=== PATIENT | female | born 1950 | race Caucasian/White ===

== ENCOUNTER 2020-09-20 10:40 | Emergency (ER) | payer MEDICARE, MEDICAID, SELFPAY ==
[2020-09-20 10:48] VITALS: BP 121/84; BP 140/57; PULSE 62; PULSE 66; RESP 14; TEMP 36.9; O2SAT 98; BMI 45.4
--- NOTE | 2020-09-20 11:25 | XR_ITS ---
EXAMINATION: XR KNEE, RIGHT CLINICAL INFORMATION: Chronic pain. COMPARISON: None TECHNIQUE: 2 views of the right knee. FINDINGS: There is a total right knee prosthesis with prosthetic components in satisfactory alignment. No visible acute fracture, dislocation or lytic process seen. The soft tissues are normal. XR/XR knee RT 3V IMPRESSION: Total right knee arthroplasty with prosthetic components in satisfactory alignment.
--- NOTE | 2020-09-20 11:33 | ED_ITS ---
HPI - Extremity Problem General Chief complaint: Extremity Problem Stated complaint: RIGHT KNEE PAIN X'S 2 DAYS, NO INJURY Time Seen by Provider: 09/20/20 11:21 Mode of arrival: EMS Limitations: no limitations History of Present Illness HPI Narrative: patient comes to the emergency room complaining of chronic right-sided knee pain. Patient states she has had pain for several months. Patient was recently discharged about a week ago from [facility], states that she did very well, but soon after she got home, she started having right knee pain again. Patient is requesting to be sent there again. Patient states since she got out of rehab, she has had no new injuries, denies falls. Patient is able to bear weight but is very painful. Related Data Home Medications Medication Instructions Recorded Confirmed amlodipine 1 tab PO DAILY 09/20/20 09/20/20 aripiprazole 1 tab PO QAM 09/20/20 09/20/20 atenolol 1 tab PO DAILY 09/20/20 09/20/20 benztropine 1 tab PO BEDTIME 09/20/20 09/20/20 benztropine 1 tab PO BID 09/20/20 09/20/20 divalproex PO 09/20/20 famotidine 1 tab PO BID 09/20/20 09/20/20 gabapentin 1 cap PO BEDTIME 09/20/20 09/20/20 naproxen 1 tab PO BID 09/20/20 09/20/20 pioglitazone 1 tab PO DAILY 09/20/20 09/20/20 simvastatin 1 tab PO BEDTIME 09/20/20 09/20/20 trazodone 1 tab PO 09/20/20 venlafaxine 1 cap PO QAM 09/20/20 09/20/20 Allergies Allergy/AdvReac Type Severity Reaction Status Date / Time codeine [Codeine] Allergy Unknown UNKNOWN Verified 09/20/20 13:44 hydromorphone [From DILAUDID] Allergy Unknown UNKNOWN Verified 09/20/20 13:44 Review of Systems Review of Systems: Constitutional : No Weight loss, No Fever, No Chills, No Night Sweats, No Fatigue, No Malaise ENT/Mouth : No Hearing loss, No Ear Pain, No Nasal Congestion, No Sinus Pain, No Hoarseness, No sore throat, No Rhinorrhea, No Swallowing Difficulty Eyes: No Eye Pain, No Swelling, No Redness, No Foreign Body, No Discharge, No Vision Changes Cardiovascular : No Chest Pain, No SOB, No Dyspnea on Exertion, No Orthopnea, No Edema, No Palpitations Respiratory : No Cough, No Sputum, No Wheezing, No Smoke Exposure, No Dyspnea Gastrointestinal : No Nausea, No Vomiting, No Diarrhea, No Constipation, No abdominal Pain, No Hematochezia, No Melena Genitourinary : no irregular bleeding, No Dysuria, No Urinary Frequency, No Hematuria, No Urinary Incontinence, No Urgency, No Flank Pain, No Urinary Flow Changes, No Hesitancy Musculoskeletal : Chronic right knee joint pain, No Myalgias, No Joint Swelling Skin : No Skin Lesions, No rash Neuro : No Weakness, No Numbness, No Paresthesias, No Loss of Consciousness, No Dizziness, No Headache Psych : No Anxiety/Panic, No Depression, No SI/HI/AH/VH, No Social Issues, Heme/Lymph: No Bruising, No Bleeding,No Lymphadenopathy Endocrine : No Polyuria, No Polydipsia, No Temperature Intolerance [facility] Past Medical History Medical History (Updated 09/20/20 @ 16:10 by Tonja Burciaga MD) Chronic kidney disease Hypernatremia Multiple falls Surgical History H/O: hysterectomy History of total knee replacement Family History Family History (Updated 09/20/20 @ 11:36 by Tonja Burciaga MD) Other Coronary artery disease Diabetes Social History Social History Alcohol intake: never Smoking Status: Former smoker Use of substances other than those prescribed or required for medical reasons: No Advance Directives: Yes Advance Directives Information Provided: Yes Advance Directives on File: No Physical Exam Vital Signs: Vital Signs: Vital Signs Temp Pulse Resp BP Pulse Ox 09/20/20 16:26 99.4 F 68 24 H 172/70 H 09/20/20 14:11 96.2 F L 65 18 137/76 96 09/20/20 12:45 99.4 F 64 20 140/42 H 94 09/20/20 12:01 62 140/57 H 98 09/20/20 10:48 98.4 F 62 14 140/57 H 98 Body Mass Index 45.4 Appearance: Alert. Oriented X3. No acute distress. Eyes: Pupils equal, round and reactive to light. ENT: Pharynx normal. Neck: Normal inspection. Neck supple. No lymph nodes noted. No crepitus CVS: Normal heart rate and rhythm. Pulses normal. Normal S1 and S2 Respiratory: No respiratory distress. Breath sounds normal. No Wheezing. No rales Abdomen: Soft and nontender. No rigidity. No distention. good BS x4 Skin: Skin warm and dry. Normal skin color. Normal skin turgor. Extremities: No lower extremity edema. patient is able to flex and extend both knees, complaining of pain flexing the right knee. Patient is able to ambulate with 1 assist Neuro: Oriented X 3. No motor deficit. No sensory deficit. Moving all extermities. No slurred speech. Course Course Course Narrative: CBC chemistry and x-ray pending, I discussed the patient with our binder caser, patient will likely benefit from returning to rehab MDM - Extremity (Nontraumatic) MDM Narrative Medical decision making narrative: patient was admitted to [facility] by Dr. aranda. patient is going to short-term rehab rehab, expected to be less than 30 days Lab Data Result diagrams: 09/20/20 11:38 09/20/20 11:38 Labs: Lab Results 09/20/20 09/20/20 09/20/20 Range/Units 11:38 11:38 14:11 WBC 5.9 (4.8-10.8) X10*3/uL RBC 3.73 L (4.20-5.50) X10*6/uL Hgb 11.7 L (12.0-16.0) g/dl Hct 37.9 (37-47) % MCV 101.6 H (80-98) fL MCH 31.4 (27.0-33.0) pg MCHC 30.9 L (31.0-35.0) g/dl RDW 13.0 (11.0-16.0) % Plt Count 198 (160-400) X10*3/uL MPV 10.9 (9.4-12.3) fL Immature Gran % (Auto) 0.2 (0.0-0.4) % Neut % (Auto) 72.8 (45-73) % Lymph % (Auto) 15.5 L (20-40) % [place] % (Auto) 7.6 (2-11) % Eos % (Auto) 3.2 (0-4) % Baso % (Auto) 0.7 (0-2) % Lymph # (Auto) 0.9 L (1.2-4.9) X10*3/uL [place] # (Auto) 0.5 (0.1-1.2) X10*3/uL Eos # (Auto) 0.2 (0.0-0.4) X10*3/uL Baso # (Auto) 0.0 (0.0-0.2) X10*3/uL Abs Immat Gran (auto) 0.01 (0.00-0.03) X10*3/uL Absolute Neuts (auto) 4.3 (2.0-8.3) X10*3/uL Absolute Nucleated RBC 0.000 (0.0-0.012) X10*3/uL Nucleated RBC % (auto) 0.0 (0.0-0.2) /100WBC Sodium 135 (135-145) mmol/L Potassium 5.8 H (3.3-5.1) mmol/l Chloride 101 (96-108) mmol/L Carbon Dioxide 28 (22-29) mmol/L Anion Gap 12 (12-20) BUN 45 H (9-16) mg/dL Creatinine 3.09 H (0.5-1.4) mg/dL Estim Creat Clear Calc 21.9 Estimated GFR 15 Random Glucose 158 H (60-115) mg/dL Calcium 8.6 (8.4-10.2) mg/dL Coronavirus (PCR) NEGATIVE (Negative) Discharge Plan Discharge Clinical Impression: Chronic pain of right knee, Impaired ambulation Patient Disposition: Xfer Other Instructions: Knee Pain (ED) Prescriptions: No [facility] benztropine 0.5 mg tablet 1 tab PO BID RF: 0 divalproex 250 mg tablet,delayed release (DR/EC) PO RF: 0 trazodone 50 mg tablet 1 tab PO RF: 0 gabapentin 400 mg capsule 1 cap PO BEDTIME RF: 0 atenolol 25 mg tablet 1 tab PO DAILY RF: 0 venlafaxine 150 mg capsule,extended release 24hr 1 cap PO QAM RF: 0 pioglitazone 45 mg tablet 1 tab PO DAILY RF: 0 famotidine 20 mg tablet 1 tab PO BID RF: 0 amlodipine 10 mg tablet 1 tab PO DAILY RF: 0 simvastatin 20 mg tablet 1 tab PO BEDTIME RF: 0 benztropine 1 mg tablet 1 tab PO BEDTIME RF: 0 naproxen 500 mg tablet 1 tab PO BID RF: 0 aripiprazole 10 mg tablet 1 tab PO QAM RF: 0
[2020-09-20 11:45] LABS: Basophils Percent Auto 0.7 % (0-2); Eosinophils Absolute Auto 0.2 X10*3/uL (0.0-0.4); Eosinophils Percent Auto 3.2 % (0-4); Hematocrit 37.9 % (37-47); Hemoglobin 11.7 g/dl (12.0-16.0); Imm Gran Abs Auto 0.01 X10*3/uL (0.00-0.03); Imm Gran Pct Auto 0.2 % (0.0-0.4); Lymphocytes Absolute Auto 0.9 X10*3/uL (1.2-4.9); Lymphocytes Percent Auto 15.5 % (20-40); MANUAL DIFF FLAG NO; Mean Corpuscular HGB Conc 30.9 g/dl (31.0-35.0); Mean Corpuscular Hemoglobin 31.4 pg (27.0-33.0); Mean Corpuscular Volume 101.6 fL (80-98); Mean Platelet Volume 10.9 fL (9.4-12.3); Monocytes Absolute Auto 0.5 X10*3/uL (0.1-1.2); Monocytes Percent Auto 7.6 % (2-11); Neutrophils Absolute Auto 4.3 X10*3/uL (2.0-8.3); Neutrophils Percent Auto 72.8 % (45-73); Platelet Count 198 X10*3/uL (160-400); Red Blood Count 3.73 X10*6/uL (4.20-5.50); White Blood Count 5.9 X10*3/uL (4.8-10.8)
[2020-09-20 12:01] VITALS: BP 140/57; PULSE 62; O2SAT 98
[2020-09-20 12:28] LABS: Blood Urea Nitrogen 45 mg/dL (9-16); Calcium 8.6 mg/dL (8.4-10.2); Creatinine Clr Calc Pharmacy 21.9; Estimated Glomerular Filt Rate 15; Glucose Random 158 mg/dL (60-115)
[2020-09-20 12:45] VITALS: BP 140/42; PULSE 64; RESP 20; TEMP 37.4; O2SAT 94
[2020-09-20 12:54] LABS: Anion Gap 12 (12-20); Carbon Dioxide 28 mmol/L (22-29); Chloride 101 mmol/L (96-108); Potassium 5.8 mmol/l (3.3-5.1); Sodium 135 mmol/L (135-145)
[2020-09-20] MEDS: Acetaminophen 325 MG TABLET 650 MG PO (13:47)
[2020-09-20 14:11] VITALS: BP 137/76; PULSE 65; RESP 18; TEMP 35.7; O2SAT 96
--- NOTE | 2020-09-20 14:43 | MHC.CM.ED ---
Met with patient. Reviewed recommendations from physical therapy for STR. Pt. believes she needs STR and requests [facility] as her first choice. Has recently been there. Referral made to [facility] and they have accepted pt. Requesting a COVID test and a MDS. Covid pending and MDS completed. Pt states she has a home health aide to do her shopping through [facility])
[2020-09-20 15:45] LABS: SARS COV2 PCR INHOUSE NEGATIVE (Negative)
--- NOTE | 2020-09-20 16:13 | MHC.CM.ED ---
COVID negative. [facility] aware and accepting pt. [facility] referral for transport at 5pm per [facility] request. MD and RN aware. Pt aware and is very happy to be going to [facility].
[2020-09-20 16:26] VITALS: BP 172/70; PULSE 68; RESP 24; TEMP 37.4
== END 2020-09-20 18:27 | disposition skilled nursing facility (03) ==
PROVIDERS: Emergency Provider Emergency Medicine; PCP Family Medicine
DX: M25.561 Pain in right knee (principal); R26.2 Difficulty in walking, not elsewhere classified; Z79.899 Other long term (current) drug therapy; Z20.828 Contact with and (suspected) exposure to other viral communicable diseases; Z87.891 Personal history of nicotine dependence
CPT/HCPCS: 36415; 73562; 80048; 85025; 87635; 97162; 99284

== ENCOUNTER 2020-10-12 05:38 | Emergency (ER) | payer MEDICARE, MEDICAID, SELFPAY ==
[2020-10-12] VITALS (11 sets, daily range): BP systolic 107–147; BP diastolic 54–80; PULSE 60–85; RESP 16–20; TEMP 36.6–37.1; O2SAT 95–96; BMI 43.6
--- NOTE | 2020-10-12 06:19 | XR_ITS ---
EXAMINATION: XR ANKLE, LEFT CLINICAL INFORMATION: Pain, twisted COMPARISON: None TECHNIQUE: AP, lateral, and mortise views of the left ankle. FINDINGS: Osseous alignment is anatomic. There is a minimally displaced oblique fracture of the distal fibula diaphysis with adjacent soft tissue swelling. No additional fracture identified. XR/XR ankle LT min 3V IMPRESSION: Minimally displaced oblique fracture of the distal fibular diaphysis.
--- NOTE | 2020-10-12 06:20 | ED_ITS ---
HPI - Fall General Chief Complaint: Fall Stated Complaint: FALL Time Seen by Provider: 10/12/20 06:19 Source: patient Mode of arrival: EMS Limitations: no limitations History of Present Illness HPI Narrative: This is a 70-year-old female who states she was trying to get out of bed and slid to the floor while twisting the left ankle but denies any head strike or loss of consciousness. Patient states that she felt a little bit of dizziness upon trying to get up out of bed. EMS was called and patient placed back in bed and at 4:30 a.m. patient was going to the kitchen is stated her left ankle was sore from a 1st fall and patient fell again but without any head strike or loss of consciousness or dizziness at this time. Otherwise, she denies any fevers, chills, shortness of breath, chest pain / palpitations. Related Data Home Medications Medication Instructions Recorded Confirmed amlodipine 10 mg PO DAILY 09/20/20 10/12/20 aripiprazole 10 mg PO QAM 09/20/20 10/12/20 atenolol 1 tab PO DAILY 09/20/20 10/12/20 benztropine 1 tab PO BEDTIME 09/20/20 10/12/20 divalproex 250 mg PO BEDTIME 09/20/20 10/12/20 famotidine 20 mg PO BID 09/20/20 10/12/20 gabapentin 400 mg PO BEDTIME 09/20/20 10/12/20 pioglitazone 45 mg PO DAILY 09/20/20 10/12/20 simvastatin 20 mg PO BEDTIME 09/20/20 10/12/20 trazodone 25 mg PO BEDTIME PRN 09/20/20 10/12/20 venlafaxine 150 cap PO QAM 09/20/20 10/12/20 insulin degludec [Tresiba unit SUBCUT 10/12/20 FlexTouch U-200] Allergies Allergy/AdvReac Type Severity Reaction Status Date / Time codeine [Codeine] Allergy Unknown UNKNOWN Verified 09/20/20 13:44 hydromorphone [From DILAUDID] Allergy Unknown UNKNOWN Verified 09/20/20 13:44 Review of Systems Review of Systems: Pertinent positives and negatives as stated in HPI 10 point review of systems otherwise negative. [facility] Past Medical History Source: nursing notes reviewed Medical History Chronic kidney disease Hypernatremia Multiple falls Surgical History H/O: hysterectomy History of total knee replacement Family History Family History Other Coronary artery disease Diabetes Social History Social History Alcohol intake: never Smoking Status: Never smoker Use of substances other than those prescribed or required for medical reasons: No Advance Directives: Yes Advance Directives Information Provided: Yes Advance Directives on File: No Physical Exam Vital Signs: Vital Signs: Last Vital Signs Temp 98.3 F 10/12/20 10:06 Pulse 60 10/12/20 10:06 Resp 16 10/12/20 10:06 BP 107/54 L 10/12/20 10:06 Pulse Ox 96 10/12/20 07:28 Body Mass Index 43.6 VITAL SIGNS: Reviewed. GENERAL: Well developed, well nourished, in no acute distress. HEAD: Normocephalic/atraumatic, EYES: PERRLA, EOMI intact without pain, no nystagmus/pallor/icterus noted EARS: Ext canals without abnormality, TMs non-bulging and non-erythematous NOSE: Nares patent bilateral OROPHARYNX: no oral lesions noted, posterior pharynx clear and non-erythematous without noted tonsillar enlargement/erythema/exudates NECK: Supple, no adenopathy LUNGS: Normal breath sounds. No adventitious sounds or accessory muscle use. SpO2<96> CARDIOVASCULAR: Regular rate and rhythm without noted murmurs, no JVD or lower extremity edema. ABDOMEN: Soft, non-tender, non-distended with bowel sounds. No rigidity. No guarding. No palpable masses or hernias noted MUSCULOSKELETAL: No tenderness, deformities, or effusions noted on gross inspection. EXTREMITIES: No cyanosis, clubbing or edema; LEFT ANKLE: minimal swelling to the lateral malleolus, capillary refill less than 3 seconds, sensation intact and palpable DP/ PT pulses. SKIN: Inspection of the skin reveals no rashes, ulcerations, jaundice, pallor, or petechiae. NEUROLOGIC: Alert and oriented x 4. Strength and sensation to light touch were grossly intact x 4. Course Course Course Narrative: This is a 70-year-old female with history and clinical presentation falls and sustained to this morning without loss of consciousness or head strike and does not appear to be infectious or anemia nature. Will obtain x-rays of the left ankle and some basic labs to ensure that underlying infection is not contributing to these falls. On review of imaging patient has a left Gutierrez fracture minimally displaced. On discussion of the case with orthopedics the recommendation was for walking boot and weight-bearing as tolerated with follow-up next week. On review of remaining investigations there is no evidence of systemic infection or anemia and the noted CKD is chronically stable. Reevaluation(s) Reevaluation #1: Signed patient over to Dr Goodwin. Time: 10:20 MDM - Fall Lab Data Result diagrams: 10/12/20 07:36 10/12/20 07:36 Labs: Lab Results 10/12/20 10/12/20 Range/Units 07:36 07:36 WBC 5.6 (4.8-10.8) X10*3/uL RBC 3.87 L (4.20-5.50) X10*6/uL Hgb 12.3 (12.0-16.0) g/dl Hct 39.7 (37-47) % MCV 102.6 H (80-98) fL MCH 31.8 (27.0-33.0) pg MCHC 31.0 (31.0-35.0) g/dl RDW 13.2 (11.0-16.0) % Plt Count 139 L D (160-400) X10*3/uL MPV 11.4 (9.4-12.3) fL Immature Gran % (Auto) 0.9 H (0.0-0.4) % Neut % (Auto) 75.8 H (45-73) % Lymph % (Auto) 9.5 L (20-40) % [place] % (Auto) 11.1 H (2-11) % Eos % (Auto) 2.3 (0-4) % Baso % (Auto) 0.4 (0-2) % Lymph # (Auto) 0.5 L (1.2-4.9) X10*3/uL [place] # (Auto) 0.6 (0.1-1.2) X10*3/uL Eos # (Auto) 0.1 (0.0-0.4) X10*3/uL Baso # (Auto) 0.0 (0.0-0.2) X10*3/uL Abs Immat Gran (auto) 0.05 H (0.00-0.03) X10*3/uL Absolute Neuts (auto) 4.3 (2.0-8.3) X10*3/uL Absolute Nucleated RBC 0.000 (0.0-0.012) X10*3/uL Nucleated RBC % (auto) 0.0 (0.0-0.2) /100WBC Sodium 139 (135-145) mmol/L Potassium 5.9 H (3.3-5.1) mmol/l Chloride 106 (96-108) mmol/L Carbon Dioxide 25 (22-29) mmol/L Anion Gap 14 (12-20) BUN 57 H (9-16) mg/dL Creatinine 3.06 H (0.5-1.4) mg/dL Estim Creat Clear Calc 21.6 Estimated GFR 15 Random Glucose 109 (60-115) mg/dL Calcium 7.8 L D (8.4-10.2) mg/dL Total Bilirubin 0.2 (0.0-1.0) mg/dL AST 17 (5-31) U/L ALT 21 (0-31) U/L Alkaline Phosphatase 74 (39-117) U/L Total Protein 5.5 L (6.5-8.0) g/dL Albumin 3.2 L (3.5-5.0) g/dL ECG Data Attestation: I personally reviewed and interpreted this ECG as follows: Interpretation: sinus rhythm, HR -64, no evidence of acute ischemia, QRS/ QTC normal limits Discharge Plan Discharge Clinical Impression: Chronic hyperkalemia Closed left fibular fracture Qualifiers: Encounter type: initial encounter Fibula location: distal Fracture morphology: other fracture Qualified Code(s): S82.832A - Other fracture of upper and lower end of left fibula, initial encounter for closed fracture Prescriptions: No [facility] divalproex 250 mg tablet,delayed release (DR/EC) 250 mg PO BEDTIME RF: 0 trazodone 50 mg tablet 25 mg PO BEDTIME PRN (Reason: Insomnia) RF: 0 gabapentin 400 mg capsule 400 mg PO BEDTIME RF: 0 atenolol 25 mg tablet 1 tab PO DAILY RF: 0 venlafaxine 150 mg capsule,extended release 24hr 150 cap PO QAM RF: 0 pioglitazone 45 mg tablet 45 mg PO DAILY RF: 0 famotidine 20 mg tablet 20 mg PO BID RF: 0 amlodipine 10 mg tablet 10 mg PO DAILY RF: 0 simvastatin 20 mg tablet 20 mg PO BEDTIME RF: 0 benztropine 1 mg tablet 1 tab PO BEDTIME RF: 0 aripiprazole 10 mg tablet 10 mg PO QAM RF: 0 Tresiba FlexTouch U-200 200 unit/mL (3 mL) insulin pen subcut RF: 0
[2020-10-12] MEDS: Acetaminophen 325 MG TABLET 975 MG PO (06:41)
--- NOTE | 2020-10-12 07:24 | PC.NURSE ---
report from neha medellin LEFT POSTERIOR ANKLE IS SWOLLEN AND PAINFUL TO TOUCH, ICE APPLIED TO REDUCE SWELLING
[2020-10-12 07:44] LABS: Basophils Percent Auto 0.4 % (0-2); Eosinophils Absolute Auto 0.1 X10*3/uL (0.0-0.4); Eosinophils Percent Auto 2.3 % (0-4); Hematocrit 39.7 % (37-47); Hemoglobin 12.3 g/dl (12.0-16.0); Imm Gran Abs Auto 0.05 X10*3/uL (0.00-0.03); Imm Gran Pct Auto 0.9 % (0.0-0.4); Lymphocytes Absolute Auto 0.5 X10*3/uL (1.2-4.9); Lymphocytes Percent Auto 9.5 % (20-40); MANUAL DIFF FLAG NO; Mean Corpuscular Hemoglobin 31.8 pg (27.0-33.0); Mean Corpuscular Volume 102.6 fL (80-98); Mean Platelet Volume 11.4 fL (9.4-12.3); Monocytes Absolute Auto 0.6 X10*3/uL (0.1-1.2); Monocytes Percent Auto 11.1 % (2-11); Neutrophils Absolute Auto 4.3 X10*3/uL (2.0-8.3); Neutrophils Percent Auto 75.8 % (45-73); Platelet Count 139 X10*3/uL (160-400); Red Blood Count 3.87 X10*6/uL (4.20-5.50); Red Cell Distribution Width 13.2 % (11.0-16.0); SCAN SMEAR FLAG 1; White Blood Count 5.6 X10*3/uL (4.8-10.8)
[2020-10-12 08:38] LABS: Alanine Aminotransferase 21 U/L (0-31); Albumin Level 3.2 g/dL (3.5-5.0); Alkaline Phosphatase 74 U/L (39-117); Aspartate Amino Transferase 17 U/L (5-31); Bilirubin Total 0.2 mg/dL (0.0-1.0); Blood Urea Nitrogen 57 mg/dL (9-16); Calcium 7.8 mg/dL (8.4-10.2); Creatinine Clr Calc Pharmacy 21.6; Estimated Glomerular Filt Rate 15; Glucose Random 109 mg/dL (60-115); Total Protein 5.5 g/dL (6.5-8.0)
[2020-10-12 08:59] LABS: Anion Gap 14 (12-20); Carbon Dioxide 25 mmol/L (22-29); Chloride 106 mmol/L (96-108); Potassium 5.9 mmol/l (3.3-5.1); Sodium 139 mmol/L (135-145)
--- NOTE | 2020-10-12 09:01 | ECG_ITS ---
Test Reason : FALL Blood Pressure : / mmHG Vent. Rate : 064 BPM Atrial Rate : 064 BPM P-R Int : 206 ms QRS Dur : 082 ms QT Int : 394 ms P-R-T Axes : 023 015 049 degrees QTc Int : 406 ms Sinus rhythm with marked sinus arrhythmia Otherwise normal ECG When compared with ECG of 04-DEC-2019 15:11, Heart rate has decreased Sinus Arrhythmia is new Referred By: Hanna Lewis Electronically Signed By:RANCHO RODRIGUEZ MD
[2020-10-12] MEDS: Sodium Polystyrene Sulfon/Sorb 15 GM/60 ML ORAL.SUSP 45 GM PO (10:56)
[2020-10-12 11:39] LABS: COVID-19 Test Positive (Negative)
[2020-10-12 12:55] LABS: Potassium 5.3 mmol/l (3.3-5.1)
--- NOTE | 2020-10-12 13:10 | PC.NURSE ---
PT RESTING S/F IN BED WATCHING TV. PT ASSISTED W/ BEDPAN, PT HAD LARGE FORMED BM. PT OFFERS NO ACUTE COMPLAINTS, AWAITING DISPO.
--- NOTE | 2020-10-12 14:33 | PC.NURSE ---
AFTER INITIAL FORMED BM PT HAD 2 SUBSEQUENT LOOSE WATERY STOOLS. PT CLEANED AND LINENS CHANGED. PT OFFERS NO COMPLAINTS.
--- NOTE | 2020-10-12 15:16 | MHC.CM.ED ---
Received case management consult from Dr Lewis overnight. Physical therapy eval completed. Rehab is recommended. Met with patient in regards to discharge planning. Patient lives alone and has a homemaker. Patient has been to [facility] in the past and requested referral there. Referral made via [employer] [facility]. They don't have a bed available to offer. Patient's covid came back positive. Referral broadcasted in [employer] for a facility that is accepting Covid patients. Anticipate patient will remain in ER overnight. Continue to monitor for d/c needs.
[2020-10-12] MEDS: amLODIPine Besylate 10 MG TABLET PO (16:41)
[2020-10-12] MEDS: Pioglitazone HCL 45 MG TABLET PO (16:42)
[2020-10-12] MEDS: atenoloL 25 MG TABLET PO (16:42)
[2020-10-12] MEDS: Venlafaxine HCl ER 150 MG CAP.ER.24H PO (18:54)
[2020-10-12] MEDS: Famotidine 20 MG TABLET PO (21:28)
[2020-10-12] MEDS: Gabapentin 400 MG CAPSULE PO (21:28)
[2020-10-12] MEDS: Divalproex Sodium 250 MG TABLET.DR PO (21:28)
[2020-10-12] MEDS: Benztropine Mesylate 1 MG TABLET PO (21:28)
[2020-10-12] MEDS: Atorvastatin Calcium 10 MG TABLET PO (21:28)
[2020-10-12 21:58] LABS: Appearance Urine CLEAR; Color Urine YELLOW; Glucose Urine UA 100 MG/DL (NEG); Leukocyte Esterase Urine NEG (NEG); Nitrite Urine NEG (NEG); PH 6.5 (5.0-8.0); Urine Blood NEG (NEG); Urine Ketones NEG (NEG); Urine Protein 1+ MG/DL (NEG-TRACE)
[2020-10-12 22:04] LABS: Bacteria Urine 1+ /LPF; RBC Urine 0 /HPF (0); Squamous Epithelial Cell Urine 1+ /LPF; WBC Urine 0 /HPF (0-4)
--- NOTE | 2020-10-13 00:05 | PC.NURSE ---
REPORT TAKEN FROM JIMENEZ VELIZ FIRST CONTACT WITH PT. SKIN PWD RESPIRATIONS EVEN UNLABORED. ASSISTED WITH BEDPAN, PO FLUIDS GIVEN. CASE MANAGEMENT BEDSEARCH CONTINUES.
[2020-10-13 03:11] VITALS: BP 164/78; PULSE 74; RESP 20; TEMP 36.8; O2SAT 93
--- NOTE | 2020-10-13 05:33 | PC.NURSE ---
PT RESTING IN BED SKIN PWD RESPIRATIONS EVEN UNLABORED. NO DISTRESS NOTED. CASE MANAGEMENT BEDSEARCH CONTINUES.
[2020-10-13 06:02] VITALS: BP 147/59; PULSE 71; RESP 18; TEMP 36.9; O2SAT 97
[2020-10-13 07:28] VITALS: RESP 16
--- NOTE | 2020-10-13 07:50 | PC.NURSE ---
pt taken off bed rueda. room cleaned up d/t multiple open bed pans sitting around. pt cleaned up and given new linen. breakfast set up and given water and call marion.
--- NOTE | 2020-10-13 08:59 | PC.NURSE ---
plan for pt to dc home. cm setting up ambulance.
[2020-10-13 09:02] VITALS: RESP 18
--- NOTE | 2020-10-13 09:18 | MHC.CM.ED ---
Patient remains in ER. [facility] is able to offer a bed. Met with patient to discuss discharge planning. Patient is denying she is Covid positive. Patient stated she wants to go home and will not go to rehab. Patient is already active with [facility]. They are aware patient is Covid positive and will resume services. [facility] booked. [facility] with chart. Patient, Louise PARACHUTE MANUFACTURING SUPERVISOR and Nargis RN aware. Continue to monitor for d/c needs.
== END 2020-10-13 10:08 | disposition home or self-care (01) ==
PROVIDERS: Emergency Provider Student in an Organized Health Care Education/Training Program; PCP Family Medicine
DX: S82.832A Other fracture of upper and lower end of left fibula, initial encounter for closed fracture (principal); M79.605 Pain in left leg; M25.572 Pain in left ankle and joints of left foot; E87.6 Hypokalemia; X50.1XXA Overexertion from prolonged static or awkward postures, initial encounter; Y93.01 Activity, walking, marching and hiking; Y92.9 Unspecified place or not applicable; Y99.9 Unspecified external cause status; Z20.828 Contact with and (suspected) exposure to other viral communicable diseases; Z79.899 Other long term (current) drug therapy
CPT/HCPCS: 36415; 73610; 80053; 81001; 84132; 85025; 87635; 93005; 97161; 99284